=== PATIENT | male | born 1960 | race Caucasian/White ===

== ENCOUNTER 2020-07-26 20:58 | Emergency (ER) | payer OTHER ==
[~2020-07-26] VITALS: Ht 182.9 cm; Wt 122.5 kg
[~2020-07-26 20:58] MED LIST: ANAFRANIL50 MG PO; KLOR-CON 1010 MEQ PO
[2020-07-26] MEDS ORDERED: SIMVASTATIN80 MG PO (21:13)
[2020-07-26] MEDS ORDERED: ZYRTEC10 M5 PO (21:13)
[2020-07-26] MEDS ORDERED: ALPRAZOLAM 0.0.25 MG PO (21:14)
[2020-07-26] MEDS ORDERED: PAXIL20 MG PO (21:14)
[2020-07-26] MEDS ORDERED: ASPIR-TRIN325 MG PO (21:15)
[2020-07-26] MEDS ORDERED: IBUPROFEN 400400 M2 PO (21:15)
[2020-07-26 21:38] LABS: ABSOLUTE BASOPHILS 0.1 thou/uL (0.0-0.2); ABSOLUTE EOSINOPHILS 0.4 thou/uL (0.0-0.7); ABSOLUTE LYMPHOCYTES 2.8 thou/uL (0.8-5.3); ABSOLUTE MONOCYTES 0.5 thou/uL (0.0-1.2); ABSOLUTE NEUTROPHILS 4.6 thou/uL (1.6-8.1); BASOPHILS 0.7 %; EOSINOPHILS 5.3 %; HEMATOCRIT 41.3 % (42.0-52.0); HEMOGLOBIN 14.3 gm/dL (14.0-18.0); MCH 30.2 pg (26.0-34.0); MCHC 34.7 g/dL (28.0-37.0); MONOCYTES 6.2 %; MPV 7.9 fl. (7.2-11.1); NUCLEATED RBCS 0 /100WBC; PLATELET COUNT* 297 thou/uL (150-400); POLYS 54.8 %; RBC 4.74 mil/uL (4.50-6.00); RDW-CV 13.3 % (10.5-14.5); WBC 8.4 thou/uL (4.0-11.0)
[2020-07-26 21:47] LABS: CALCIUM 8.7 mg/dL (8.5-10.1); CREATININE 1.2 mg/dL (0.6-1.3); POTASSIUM 3.7 mmol/L (3.5-5.1)
[2020-07-26 21:52] LABS: ALBUMIN 4.1 g/dL (3.4-5.0); TOTAL BILIRUBIN 0.8 mg/dL (<0.1-1.0)
[2020-07-26] MEDS ORDERED: PRINIVIL10 MG PO ×2 (22:45→22:46)
[2020-07-26] MEDS ORDERED: TRAMADOL 50 MG50 MG PO (22:47)
[2020-07-26 22:55] VITALS: BP 132/65
--- NOTE | 2020-07-27 15:22 | EKG ---
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 : 1960 Requested By: Cata Momin Order Number: [id number] MD: Jun Martinez Measurements Intervals [place] Rate: 72 P: 41 IA: 179 QRS: -40 QRSD: 122 T: 48 QT: 411 QTc: 450 Interpretive Statements Sinus rhythm Nonspecific IVCD with LAD Baseline wander in lead(s) V3 Compared to ECG 05/23/2014 17:03:08 Intraventricular conduction delay now present Ventricular premature complex(es) no longer present Myocardial infarct finding no longer present Prolonged QT interval no longer present Electronically Signed On 07-27-2020 15:21:54 CDT by Jun Martinez [email or web address] <ELECTRONICALLY SIGNED> By: Jun Martinez MD, [facility] 07/27/20 152 30 30 Jun Martinez MD, [facility] /EPI
== END 2020-07-26 22:56 | disposition home or self-care (01) ==
LOC: M.ERS 20:58
PROVIDERS: Emergency Medicine
DX: I10 Essential (primary) hypertension (principal); Z79.82 Long term (current) use of aspirin; Z79.899 Other long term (current) drug therapy; Z90.49 Acquired absence of other specified parts of digestive tract